=== PATIENT | male | born 1970 | race Caucasian/White ===

== ENCOUNTER → 2021-06-03 | Outpatient (CLI) | payer OTHER ==
--- NOTE | 2021-06-03 16:47 | XR ---
EXAMINATION TYPE: XR chest 1V DATE OF EXAM: 06/03/2021 COMPARISON: NONE HISTORY: 50-year-old male F10.20, alcohol use disorder, cough congestion, and wheezing. TECHNIQUE: Single frontal view of the chest is obtained. FINDINGS: Large body habitus casting hazy densities especially in the lower lungs. Heart normal size. Aorta and pulmonary vasculature within normal limits. Mild central peribronchial cuffing noted. There is patch y opacity at the right base. No pleural effusion. IMPRESSION: 1. Limitations due to large patient body habitus. 2. Some central peribronchial cuffing is noted and can be seen in the setting of bronchitis or asthma . 3. Mild patchy atelectasis versus early infiltrate at the right base. Clinically correlate.
== END | disposition home or self-care (01) ==
LOC: RADXRMAIN 15:34
PROVIDERS: ATTEND Family Medicine
DX: J98.09 Other diseases of bronchus, not elsewhere classified (principal); F10.20 Alcohol dependence, uncomplicated
CPT/HCPCS: 71045